=== PATIENT | female | born 2000 | race Two or more races ===

== ENCOUNTER 2019-04-12 16:57 | Emergency (ER) | payer OTHER ==
[2019-04-12] MEDS ORDERED: Sodium Chloride 0.9% 10 ML Syringe FLUSH PRN (17:35)
[2019-04-12] MEDS ORDERED: Lactated Ringers 1,000 ML IV ONE (17:35)
--- NOTE | 2019-04-12 18:07 | EDM.PDOC ---
ED HPI GENERAL MEDICAL PROBLEM - General Chief Complaint: Syncope Stated Complaint: SYNCOPE - 8 WEEKS PG Time Seen by Provider: 04/12/19 17:10 Source of Information: Reports: Patient History Limitations: Reports: No Limitations - History of Present Illness INITIAL COMMENTS - FREE TEXT/NARRATIVE: 18 year old female presents for evaluation and treatment following a syncopal episode. Patient reports just prior to arrival in the ER she felt very anxious and lightheaded. Reports having a syncopal episode which lasted maybe one minute . She denies any fevers, chills, vomiting, sore throat, chest pain, shortness of breath, urinary symptoms or any current nausea. Reports the lightheadedness has improved. Patient reports she has not had anything to eat today. Has had very little fluids. Patient is approximately 8 weeks . She denies any vaginal bleeding. Reports minor pelvic cramping. She states she has had trouble with nausea, diarrhea and constipation throughout this . She is a . - Related Data Allergies Allergy/AdvReac Type Severity Reaction Status Date / Time olive extract Allergy Cannot Verified 04/12/19 17:07 Remember pollen extracts Allergy Cannot Verified 04/12/19 17:07 Remember dust Allergy Cannot Uncoded 04/12/19 17:07 Remember Home Meds: Home Meds Cephalexin [Keflex] 500 mg PO BID #14 capsule 04/12/19 [Rx] Past Medical History - Past Health History Medical/Surgical History: Denies Medical/Surgical History Social & Family History - Tobacco Use Smoking Status *Q: Never Smoker Second Hand Smoke Exposure: No - Caffeine Use Caffeine Use: Reports: Coffee - Recreational Drug Use Recreational Drug Use: Yes Drug Use in Last 12 Months: Yes Recreational Drug Type: Reports: Marijuana/Hashish ED ROS GENERAL - Review of Systems Review Of Systems: See Below Constitutional: Denies: Fever, Chills Respiratory: Denies: Shortness of Breath Cardiovascular: Denies: Chest Pain GI/Abdominal: Denies: Abdominal Pain : Reports: Other (denies vaginal bleeding). Denies: Dysuria, Hematuria, Pain (minor pelvic cramping) Neurological: Reports: Syncope. Denies: Headache - Physical Exam Exam: See Below Exam Limited By: No Limitations General Appearance: Alert, WD/WN, No Apparent Distress Eye Exam: Bilateral Eye: Normal Inspection Ears: Normal External Exam Nose: Normal Inspection Throat/Mouth: Normal Inspection, Normal Lips, Normal Voice, No Airway Compromise Respiratory/Chest: No Respiratory Distress, Lungs Clear, Normal Breath Sounds Cardiovascular: Normal Peripheral Pulses, Regular Rate, Rhythm, No Murmur GI/Abdominal: Normal Bowel Sounds, Soft, Non-Tender Neuro Exam (Abbreviated): Alert, Oriented, Normal Cognition Psychiatric: Normal Affect, Normal Mood Skin Exam: Warm, Dry, Normal Color Course - Vital Signs Last Recorded V/S: Last Vital Signs Temp 97.6 F 04/12/19 17:04 Pulse 80 04/12/19 17:04 Resp 16 04/12/19 17:04 BP 98/58 L 04/12/19 17:04 Pulse Ox 100 04/12/19 17:04 Orthostatic Blood Pressure [ 115/80 Standing] Orthostatic Blood Pressure [ 99/72 Sitting] Orthostatic Blood Pressure [ 103/54 Supine] - Orders/Labs/Meds Labs: Laboratory Tests 04/12/19 04/12/19 04/12/19 Range/Units 18:20 18:20 19:51 WBC 13.02 H (3.98-10.04) K/mm3 RBC 5.41 H (3.98-5.22) M/mm3 Hgb 14.6 (11.2-15.7) gm/L Hct 43.5 (34.1-44.9) % MCV 80.4 (79.4-94.8) fl MCH 27.0 (25.6-32.2) pg MCHC 33.6 (32.2-35.5) g/dl RDW Std Deviation 40.9 (36.4-46.3) fL Plt Count 274 (182-369) K/mm3 MPV 11.6 (9.4-12.3) fl Neut % (Auto) 70.1 (34.0-71.1) % Lymph % (Auto) 22.0 (19.3-51.7) % Mckenzie % (Auto) 6.5 (4.7-12.5) % Eos % (Auto) 0.8 (0.7-5.8) Baso % (Auto) 0.2 (0.1-1.2) % Neut # (Auto) 9.12 H (1.56-6.13) K/mm3 Lymph # (Auto) 2.87 (1.18-3.74) K/mm3 Mckenzie # (Auto) 0.84 H (0.24-0.36) K/mm3 Eos # (Auto) 0.11 (0.04-0.36) K/mm3 Baso # (Auto) 0.03 (0.01-0.08) K/mm3 Sodium 137 (136-145) mEq/L Potassium 3.5 (3.5-5.1) mEq/L Chloride 100 (98-107) mEq/L Carbon Dioxide 23 (21-32) mEq/L Anion Gap 17.5 H (5-15) BUN 8 (7-18) mg/dL Creatinine 0.6 (0.55-1.02) mg/dL Est Cr Clr Drug Dosing 128.52 mL/min Estimated GFR (MDRD) > 60 (>60) mL/min BUN/Creatinine Ratio 13.3 L (14-18) Glucose 89 (74-106) mg/dL Calcium 9.4 (8.5-10.1) mg/dL Magnesium 2.0 (1.8-2.4) mg/dl Total Bilirubin 0.8 (0.2-1.0) mg/dL AST 16 (15-37) U/L ALT 37 (14-59) U/L Alkaline Phosphatase 55 (46-116) U/L Total Protein 8.7 H (6.4-8.2) g/dl Albumin 4.3 (3.4-5.0) g/dl Globulin 4.4 gm/dL Albumin/Globulin Ratio 1.0 (1-2) Urine Color Yellow (Yellow) Urine Appearance Cloudy H (Clear) Urine pH 7.5 (5.0-8.0) Ur Specific [place] 1.025 (1.005-1.030) Urine Protein 2+ H (Negative) Urine Glucose (UA) Negative (Negative) Urine Ketones 3+ H (Negative) Urine Occult Blood 2+ H (Negative) Urine Nitrite Negative (Negative) Urine Bilirubin Negative (Negative) Urine Urobilinogen 0.2 (0.2-1.0) Ur Leukocyte Esterase 1+ H (Negative) Urine RBC 5-10 H (0-5) /hpf Urine WBC 20-30 H (0-5) /hpf Ur Squamous Epith Cells 10-20 H (0-5) /hpf Amorphous Sediment Few H (NOT SEEN) /hpf Urine Bacteria Moderate H (FEW) /hpf Urine Mucus Moderate H (FEW) /hpf Meds: Medications Discontinued Medications Generic Name Dose Route Start Last Admin Trade Name Mitch PRN Reason Stop Dose Admin Lactated Ringer's 1,000 mls @ 999 mls/hr 04/12/19 17:35 04/12/19 18:25 Ringers, Lactated IV 04/12/19 18:35 999 mls/hr .BOLUS ONE Administration Sodium Chloride 10 ml 04/12/19 17:35 04/12/19 18:20 Saline Flush FLUSH 10 ml ASDIRECTED PRN Administration Keep Vein Open - Re-Assessments/Exams Free Text/Narrative Re-Assessment/Exam: 04/12/19 20:00 Checked on the patient. Feeling improved at this time. Will treat for a UTI due to leuks in UA. Urine sent for culture. Recommend follow-up with [facility]. Discharge instructions as documented. Departure - Departure Time of Disposition: 20:05 Disposition: Home, Self-Care 01 Condition: Fair Clinical Impression: , Vasovagal syncope, UTI (urinary tract infection) - Discharge Information *PRESCRIPTION DRUG MONITORING PROGRAM REVIEWED*: No *COPY OF PRESCRIPTION DRUG MONITORING REPORT IN PATIENT BRINA: No Prescriptions: Cephalexin [Keflex] 500 mg PO BID #14 capsule Instructions: Vasovagal Syncope, Pediatric, Urinary Tract Infection, Adult Referrals: PCP,None [Primary Care Provider] - Jia Mendez MD [Physician] - Forms: ED Department Discharge Additional Instructions: take the cephalexin as prescribed. 1 cap PO bd x 7 days. Make sure you are drinking plenty of fluids. Drink about half of your body weight in ounces in fluid a day. Make sure you are eating. Eat 3 meals a day and several small snacks in between. A list of medications safe in has been provided for you. Take a vitamin. Start as soon as you are able to. Avoid any tobacco, alcohol or illicit drugs while you are . Follow-up with OB. Recommend dr. Mendez or Dr. Quintana at [facility]. Call to schedule with one of these providers. Please return to the ER should your symptoms change or worsen.
== END 2019-04-12 20:26 | disposition home or self-care (01) ==
LOC: JD.ED 16:57
DX: O23.41 Unspecified infection of urinary tract in pregnancy, first trimester (principal); O99.89 Other specified diseases and conditions complicating pregnancy, childbirth and the puerperium; R55 Syncope and collapse; Z88.8 Allergy status to other drugs, medicaments and biological substances; Z3A.08 8 weeks gestation of pregnancy
CPT/HCPCS: 36415; 80053; 81001; 83735; 85025; 87086; 87088; 96360; 99283; J7120